=== PATIENT | male | born 1985 | race African-American/Black ===

== ENCOUNTER 2020-01-16 01:19 | Emergency (ER) | payer OTHER ==
[~2020-01-16] VITALS: Ht 175.3 cm; Wt 79.4 kg
--- NOTE | 2020-01-16 01:42 | NUR ---
ED Nurse Note: Patient walked in from home d/t right side of face swelling and pain 10/10, denies SOB/respiratory issues. Patient stated he was seen at [facility] a few days ago and currently taking Cleocin and Ibuprofen for a couple of days but ineffective and pain worsening. Patient aao x 4 and ambulatory with steady gait. Patient stable upon assessment.
[2020-01-16 01:44] VITALS: BP 145/82
--- NOTE | 2020-01-16 01:53 | NUR ---
ED Nurse Note: ERMD at bedside.
[2020-01-16] MEDS ORDERED: AUGMENTIN 875-1 EAC1 ORAL (01:56)
[2020-01-16] MEDS ORDERED: IBUPROFEN600 MG ORAL (01:56)
[2020-01-16 02:00] VITALS: BP 145/82
--- NOTE | 2020-01-16 02:00 | NUR ---
ED Nurse Note: Pt cleared by health care Provider for discharge. DC instructions/prescription was given and explained to pt and verbalized understanding of teachings. Instructed pt to follow up with primary care physican within 1-2 days. All medical deviecs such as ID band removed. Pt is AAO x4, ambulatory and left with all personal belongings.
--- NOTE | 2020-01-16 02:09 | Emergency Room Report ---
History of Present Illness General Chief Complaint: Toothache Source: Patient Present Illness HPI Patient presents with complaints of right lower facial swelling Reports that he has been on antibiotics and the area continues to swell Increased pain Denies any trismus denies any change with his voice Denies any fevers or chills pain is 10 out of 10 localized to the lower dental area COVID-19 risk:Travel to affect: No Allergies: Coded Allergies: No Known Allergies (Unverified , 01/16/20) Patient History Past Medical History: see triage record Reviewed Nursing Documentation: PMH: Agreed; PSxH: Agreed Nursing Documentation-PMH Past Medical History: No Stated History Review of Systems All Other Systems: negative except mentioned in HPI Physical Exam Vital Signs Date Time Temp Pulse Resp B/P (MAP) Pulse Ox O2 Delivery O2 Flow Rate FiO2 01/16/20 01:32 97.9 87 20 148/79 (102) 98 Room Air Sp02 EP Interpretation: reviewed, normal General Appearance: no apparent distress Head: normocephalic, atraumatic Eyes: bilateral eye PERRL, bilateral eye EOMI ENT: EOM grossly intact, other - Increased edema and swelling noted to the right lower gingival region consistent with likely early abscess. No obvious trismus no submental fullness Neck: supple Respiratory: lungs clear, no respiratory distress Cardiovascular #1: regular rate, rhythm Gastrointestinal: non tender, soft Musculoskeletal: normal inspection Neurologic: alert, oriented x3 Psychiatric: normal inspection Skin: other - As above with swelling noted Lymphatic: no adenopathy Medical Decision Making Diagnostic Impression: Primary Impression: dental abscess ER Course Patient's history and findings are consistent with dental abscess He does require appropriate follow-up with dental specialist possible maxillofacial specialist We do not have the services at this facility patient is on outpatient oral antibiotics We will continue antibiotics and anti-inflammatory And requires appropriate outpatient follow-up Last Vital Signs Date Time Temp Pulse Resp B/P (MAP) Pulse Ox O2 Delivery O2 Flow Rate FiO2 01/16/20 01:44 98.0 85 18 145/82 98 Room Air Status: unchanged Disposition: HOME, SELF-CARE Condition: Stable Scripts Amoxicillin/Potassium Clav 875-125* (AUGMENTIN 875-125 TABLET*) 1 Each Tablet 1 TAB ORAL TWICE A DAY, #14 TAB Prov: Pricila Moffett DO 01/16/20 Ibuprofen* (MOTRIN*) 600 Mg Tablet 600 MG ORAL Q8H PRN for For Pain, #20 TAB 0 Refills Prov: Pricila Moffett DO 01/16/20 Referrals: NOT CHOSEN IPA/MD,REFERRING (PCP) [facility] ER - Peds ER - Patient Instructions: Dental Abscess, [id number] Additional Instructions: You required to be seen by a dental specialist. Other specialist such as maxillofacial specialist will also be able to assist with this. Unfortunately we do not have the specialty on-call at this facility. Patient is provided with the discharge instructions notified to follow up with primary doctor in the next 2-3 days otherwise return to the er with any worsening symptoms. Please note that this report is being documented using [employer] technology. This can lead to erroneous entry secondary to incorrect interpretation by the dictating instrument. Pricila Moffett DO Jan 16, 2020 02:09
== END 2020-01-16 02:00 | disposition home or self-care (01) ==
LOC: EDBD 01:46 → EMR 01:46
DX: K04.7 Periapical abscess without sinus (principal)
CPT/HCPCS: 99281